=== PATIENT | female | born 1950 | race African-American/Black ===

== ENCOUNTER 2017-10-01 03:23 | Emergency (ER) | payer MEDICARE, MEDICAID ==
[~2017-10-01] VITALS: Ht 170.2 cm; Wt 103.4 kg
[2017-10-01] MEDS ORDERED: CLONIDINE0.1 PO (03:40)
[2017-10-01] MEDS ORDERED: OMEPRAZOLE5 GM PO (03:41)
[2017-10-01] MEDS ORDERED: HYDROCHLOROTHIA25 M2 PO (03:41)
[2017-10-01] MEDS ORDERED: NAPROSYN500 MG PO (03:42)
[2017-10-01] MEDS ORDERED: HYDROCODON-ACE1 EAC7 PO (03:43)
[2017-10-01 04:50] LABS: URINE BILIRUBIN NEGATIVE (Negative); URINE BLOOD 2+ (Negative); URINE CLARITY CLEAR; URINE COLOR YELLOW; URINE GLUCOSE-RANDOM 1+ (Negative); URINE KETONES NEGATIVE (Negative); URINE LEUKOCYTES-REFLEX NEGATIVE (Negative); URINE NITRITE-REFLEX NEGATIVE (Negative); URINE PROTEIN 1+ (Negative); URINE UROBILINOGEN 0.2 E.U./dl (0.2-1.0)
[2017-10-01 05:04] LABS: HEMATOCRIT 49.3 % (37.0-47.0); HEMOGLOBIN 16.3 gm/dL (12.0-15.0); MCH 28.9 pg (26.0-34.0); MCHC 33.1 g/dL (28.0-37.0); MCV 87.5 fL (80.0-100.0); NUCLEATED RBCS 0 /100WBC; PLATELET COUNT* 323 thou/uL (150-400); RBC 5.64 mil/uL (4.20-5.00); WBC 23.2 thou/uL (4.0-11.0)
[2017-10-01 05:08] LABS: CALCIUM 9.5 mg/dL (8.5-10.1); POTASSIUM 3.2 mmol/L (3.5-5.1)
[2017-10-01 05:13] LABS: ALBUMIN 3.5 g/dL (3.4-5.0); TOTAL BILIRUBIN 0.3 mg/dL (<0.1-1.0); TOTAL PROTEIN 7.8 g/dL (6.4-8.2)
[2017-10-01 06:07] LABS: ABSOLUTE LYMPHOCYTES 4.4 thou/uL (0.8-5.3); ABSOLUTE MONOCYTES 0.2 thou/uL (0.0-1.2); ABSOLUTE NEUTROPHILS 18.6 thou/uL (1.6-8.1); PLATELET ESTIMATE ADEQUATE
[2017-10-01 06:08] LABS: LARGE PLATELETS RARE
[2017-10-01 06:13] LABS: SQUAMOUS 4-10 Moderate /LPF (0-3)
[2017-10-01 06:14] LABS: BACTERIA-REFLEX 1-9 Few /HPF (None Seen); CASTS None Seen /LPF (None Seen); CRYSTALS None Seen /LPF (None Seen); URINE WBC-REFLEX 0-5 Rare /HPF (0-5)
[2017-10-01] MEDS ORDERED: REGLAN 10 MG TA10 MG PO (06:43)
[2017-10-01 07:11] VITALS: BP 150/88
== END 2017-10-01 07:11 | disposition home or self-care (01) ==
LOC: M.ERS 03:23
PROVIDERS: Emergency Medicine
DX: R51 Headache (principal); I10 Essential (primary) hypertension; M19.90 Unspecified osteoarthritis, unspecified site; Z96.653 Presence of artificial knee joint, bilateral; Z90.710 Acquired absence of both cervix and uterus; Z88.5 Allergy status to narcotic agent

== ENCOUNTER 2018-02-11 10:51 | Emergency (ER) | payer MEDICARE, MEDICAID ==
[~2018-02-11] VITALS: Ht 167.6 cm; Wt 104.5 kg
[~2018-02-11 10:51] MED LIST: CLONIDINE0.1 PO; HYDROCHLOROTHIA25 M2 PO; HYDROCODON-ACE1 EAC7 PO; NAPROSYN500 MG PO; OMEPRAZOLE5 GM PO; REGLAN 10 MG TA10 MG PO
[2018-02-11] MEDS ORDERED: LIPITOR10 MG PO (11:10)
[2018-02-11] MEDS ORDERED: PREDNISONE 20 M20 M1 PO (11:15)
[2018-02-11] MEDS ORDERED: AMOXICILLIN 50500 MG PO (11:15)
[2018-02-11 11:24] VITALS: BP 130/75
--- NOTE | 2018-02-12 12:58 | EKG ---
[place] [address] ELECTROCARDIOGRAM REPORT Name: JENNYFER LEE [id number] Admission: 02/11/18 Attend Phys: Discharge: 02/11/18 Date of : 52 Report #: [id number] THIS REPORT FOR: //name// [facility] ED Test Date: 2018-02-11 Test Time: 11:10:13 Pat Name: JENNYFER LEE Department: Room: Gender: F Associate Research Scientist: : 1950 Requested By: Mendoza Colvin Order Number: [id number] MD: Tavo Vila Measurements Intervals [place] Rate: 65 P: -38 [place]: 155 QRS: -12 QRSD: 100 T: 16 QT: 392 QTc: 408 Interpretive Statements Sinus rhythm No previous ECG available for comparison Electronically Signed On 02-12-2018 12:58:09 SOIL ANALYST by Tavo Vila [email or web address] <ELECTRONICALLY SIGNED> By: Tavo Vila MD, [facility] 02/12/18 1258 1110 1110 Tavo Vila MD, FACC /EPI
== END 2018-02-11 11:25 | disposition home or self-care (01) ==
LOC: M.ERS 10:51
DX: J06.9 Acute upper respiratory infection, unspecified (principal); I10 Essential (primary) hypertension; M19.90 Unspecified osteoarthritis, unspecified site; Z90.710 Acquired absence of both cervix and uterus; Z88.5 Allergy status to narcotic agent

== ENCOUNTER → 2018-04-04 | Emergency (ER) | payer MEDICARE, MEDICAID ==
[~2018-04-04] VITALS: Ht 170.2 cm; Wt 102.1 kg
[~2018-04-04] MED LIST changes: +AMOXICILLIN 50500 MG PO; +FLEXERIL PO; +LIPITOR10 MG PO; +NORCO 5-325 TA1 EACH PO; +PREDNISONE 20 M20 M1 PO
[2018-04-04 14:04] LABS: ABSOLUTE BASOPHILS 0.2 thou/uL (0.0-0.2); ABSOLUTE EOSINOPHILS 0.3 thou/uL (0.0-0.7); ABSOLUTE LYMPHOCYTES 4.1 thou/uL (0.8-5.3); ABSOLUTE MONOCYTES 0.9 thou/uL (0.0-1.2); ABSOLUTE NEUTROPHILS 7.4 thou/uL (1.6-8.1); BASOPHILS 1.4 %; EOSINOPHILS 2.5 %; HEMATOCRIT 43.7 % (37.0-47.0); HEMOGLOBIN 14.5 gm/dL (12.0-15.0); LYMPHOCYTES 31.6 %; MCH 29.4 pg (26.0-34.0); MCHC 33.2 g/dL (28.0-37.0); MCV 88.7 fL (80.0-100.0); MONOCYTES 7.2 %; MPV 8.6 fl. (7.2-11.1); NUCLEATED RBCS 0 /100WBC; PLATELET COUNT* 308 thou/uL (150-400); POLYS 57.3 %; RBC 4.93 mil/uL (4.20-5.00); RDW-CV 14.4 % (10.5-14.5)
[2018-04-04 14:20] LABS: APTT 30.4 Seconds (25.0-31.3); PROTIME 10.2 Seconds (9.20-11.50)
[2018-04-04 14:24] LABS: ANION GAP 6 mmol/L (7-16); BUN 21 mg/dL (7-18); CHLORIDE 107 mmol/L (98-107); CO2 27 mmol/L (21-32); GLUCOSE 118 mg/dL (70-99); POTASSIUM 3.4 mmol/L (3.5-5.1); SODIUM 140 mmol/L (136-145)
[2018-04-04 14:26] LABS: TROPONIN-I LEVEL <0.06 ng/mL (<0.06)
[2018-04-04 14:37] LABS: ALBUMIN 3.4 g/dL (3.4-5.0); ALKALINE PHOSPHATASE 71 U/L (46-116); CK-MB MASS 0.7 ng/mL (<0.5-3.6); LIPASE 79 U/L (73-393); MAGNESIUM 2.1 mg/dL (1.8-2.4); NT-PRO BRAIN NAT PEPTIDE 253 pg/mL (<300); SGOT 23 U/L (15-37); SGPT 23 U/L (30-65); TOTAL BILIRUBIN 0.6 mg/dL (<0.1-1.0); TOTAL PROTEIN 6.9 g/dL (6.4-8.2)
[2018-04-04 14:55] VITALS: BP 115/73
--- NOTE | 2018-04-05 15:52 | EKG ---
[place] [address] ELECTROCARDIOGRAM REPORT Name: JENNYFER LEE Room: [facility]#: [id number] Admission: 04/04/18 Attend Phys: Discharge: Date of : 52 Report #: [id number] THIS REPORT FOR: //name// [facility] ED Test Date: 2018-04-04 Test Time: 13:44:49 Pat Name: JENNYFER LEE Department: Room: Gender: F Training And Development Rep: MICHI : 1950 Requested By: Mendoza Colvin Order Number: [id number] MD: Dima Serrano Measurements Intervals [place] Rate: 72 P: -37 [place]: 153 QRS: -13 QRSD: 95 T: 31 QT: 389 QTc: 426 Interpretive Statements Sinus rhythm Compared to ECG 02/11/2018 11:10:13 No significant changes Electronically Signed On 04-05-2018 15:51:50 SUPERVISOR EDUCATION by Dima Serrano [email or web address] <ELECTRONICALLY SIGNED> By: Dima Serrano MD, [facility] 04/05/18 1551 1344 1344 Dima Serrano MD, FACC /EPI
== END ==
LOC: M.ERS 13:35
PROVIDERS: Family Medicine
DX: R07.89 Other chest pain (principal); M54.5 Low back pain; I10 Essential (primary) hypertension; M19.90 Unspecified osteoarthritis, unspecified site; Z90.710 Acquired absence of both cervix and uterus; Z96.653 Presence of artificial knee joint, bilateral; Z88.5 Allergy status to narcotic agent; Z98.890 Other specified postprocedural states

== ENCOUNTER → 2018-12-20 | Outpatient (CLI) | payer MEDICARE, MEDICAID | LOC: M.LAB 03:56 | DX: R05 Cough (principal) ==

== ENCOUNTER → 2019-03-26 | Outpatient (CLI) | payer MEDICARE, MEDICAID | LOC: M.RAD 11:34 | DX: M19.011 Primary osteoarthritis, right shoulder (principal) ==

== ENCOUNTER 2019-05-06 15:17 | Emergency (ER) | payer MEDICARE, MEDICAID ==
[~2019-05-06] VITALS: Ht 170.2 cm; Wt 99.8 kg
[2019-05-06 15:33] LABS: URINE BLOOD 1+ (Negative); URINE CLARITY CLEAR; URINE COLOR YELLOW; URINE GLUCOSE-RANDOM NEGATIVE (Negative); URINE KETONES NEGATIVE (Negative); URINE LEUKOCYTES-REFLEX NEGATIVE (Negative); URINE NITRITE-REFLEX NEGATIVE (Negative); URINE PROTEIN TRACE (Negative); URINE SPECIFIC GRAVITY >= 1.030 (1.005-1.030); URINE UROBILINOGEN 0.2 E.U./dl (0.2-1.0)
[2019-05-06 15:34] LABS: ICTOTEST (BILI CONFIRMATORY) Negative (Negative); URINE BILIRUBIN 1+ (Negative)
[2019-05-06] MEDS ORDERED: FLEXERIL PO (15:34)
[2019-05-06 15:44] LABS: SQUAMOUS >10 Many /LPF (0-3)
[2019-05-06 15:45] LABS: BACTERIA-REFLEX >30 Many /HPF (None Seen); CASTS None Seen /LPF (None Seen); CRYSTALS None Seen /LPF (None Seen); MUCUS >6 Heavy strn/LPF (None Seen); URINE RBC 0-2 Rare /HPF (0-2); URINE WBC-REFLEX 0-5 Rare /HPF (0-5)
[2019-05-06 15:52] LABS: ABSOLUTE EOSINOPHILS 0.5 thou/uL (0.0-0.7); ABSOLUTE LYMPHOCYTES 4.4 thou/uL (0.8-5.3); ABSOLUTE MONOCYTES 1.2 thou/uL (0.0-1.2); ABSOLUTE NEUTROPHILS 6.8 thou/uL (1.6-8.1); BASOPHILS 0.2 %; EOSINOPHILS 3.5 %; HEMATOCRIT 42.6 % (37.0-47.0); HEMOGLOBIN 14.4 gm/dL (12.0-15.0); LYMPHOCYTES 34.1 %; MCH 29.3 pg (26.0-34.0); MCHC 33.8 g/dL (28.0-37.0); MCV 86.5 fL (80.0-100.0); MPV 8.7 fl. (7.2-11.1); NUCLEATED RBCS 0 /100WBC; PLATELET COUNT* 299 thou/uL (150-400); POLYS 53.2 %; RBC 4.93 mil/uL (4.20-5.00); RDW-CV 14.3 % (10.5-14.5); WBC 12.9 thou/uL (4.0-11.0)
[2019-05-06 16:01] LABS: CALCIUM 8.6 mg/dL (8.5-10.1); CREATININE 1.1 mg/dL (0.6-1.3)
[2019-05-06 16:05] LABS: ALBUMIN 3.7 g/dL (3.4-5.0); TOTAL BILIRUBIN 0.7 mg/dL (<0.1-1.0)
[2019-05-06 16:07] LABS: POTASSIUM 2.9 mmol/L (3.5-5.1)
[2019-05-06] MEDS ORDERED: POTASSIUM20 PO (18:33)
[2019-05-06] MEDS ORDERED: PYRIDIUM100 M1 PO (18:33)
[2019-05-06] MEDS ORDERED: ONDANSETRON HCL4 M2 PO (18:33)
[2019-05-06] MEDS ORDERED: KEFLEX500 M1 PO (18:33)
[2019-05-06 19:07] VITALS: BP 128/75
== END 2019-05-06 19:08 | disposition home or self-care (01) ==
LOC: M.ERS 15:17
PROVIDERS: Nurse Practitioner Family
DX: N39.0 Urinary tract infection, site not specified (principal); M25.572 Pain in left ankle and joints of left foot; N28.1 Cyst of kidney, acquired; N89.8 Other specified noninflammatory disorders of vagina; E87.6 Hypokalemia; R11.0 Nausea; I10 Essential (primary) hypertension; Z90.710 Acquired absence of both cervix and uterus; M19.90 Unspecified osteoarthritis, unspecified site; Z90.81 Acquired absence of spleen; Z88.5 Allergy status to narcotic agent; Z96.653 Presence of artificial knee joint, bilateral

== ENCOUNTER → 2019-07-05 | Outpatient (CLI) | payer MEDICARE, MEDICAID ==
[~2019-07-05] MED LIST changes: +KEFLEX500 M1 PO; +ONDANSETRON HCL4 M2 PO; +POTASSIUM20 PO; +PYRIDIUM100 M1 PO
[2019-07-05 15:36] LABS: URINE BILIRUBIN NEGATIVE (Negative); URINE BLOOD TRACE (Negative); URINE CLARITY CLEAR; URINE COLOR YELLOW; URINE GLUCOSE-RANDOM NEGATIVE (Negative); URINE KETONES NEGATIVE (Negative); URINE LEUKOCYTES NEGATIVE (Negative); URINE NITRITE NEGATIVE (Negative); URINE PROTEIN NEGATIVE (Negative); URINE SPECIFIC GRAVITY >= 1.030 (1.005-1.030); URINE UROBILINOGEN 0.2 E.U./dl (0.2-1.0)
[2019-07-05 15:39] LABS: HEMATOCRIT 43.4 % (37.0-47.0); HEMOGLOBIN 14.7 gm/dL (12.0-15.0)
[2019-07-05 16:10] LABS: POTASSIUM 2.7 mmol/L (3.5-5.1)
== END ==
LOC: M.LAB 15:08
PROVIDERS: Internal Medicine Nephrology
DX: N18.2 Chronic kidney disease, stage 2 (mild) (principal)

== ENCOUNTER 2020-09-04 10:48 | Emergency (ER) | payer OTHER, MEDICAID ==
[~2020-09-04] VITALS: Ht 170.2 cm; Wt 106.6 kg
[2020-09-04 11:14] LABS: URINE BILIRUBIN NEGATIVE (Negative); URINE BLOOD TRACE (Negative); URINE CLARITY CLEAR; URINE COLOR YELLOW; URINE GLUCOSE-RANDOM NEGATIVE (Negative); URINE KETONES NEGATIVE (Negative); URINE LEUKOCYTES-REFLEX NEGATIVE (Negative); URINE NITRITE-REFLEX NEGATIVE (Negative); URINE PROTEIN NEGATIVE (Negative); URINE UROBILINOGEN 0.2 E.U./dl (0.2-1.0)
[2020-09-04 11:39] LABS: ABSOLUTE BASOPHILS 0.1 thou/uL (0.0-0.2); ABSOLUTE EOSINOPHILS 0.4 thou/uL (0.0-0.7); ABSOLUTE LYMPHOCYTES 3.8 thou/uL (0.8-5.3); ABSOLUTE MONOCYTES 0.8 thou/uL (0.0-1.2); ABSOLUTE NEUTROPHILS 4.3 thou/uL (1.6-8.1); BASOPHILS 1.4 %; EOSINOPHILS 3.8 %; HEMATOCRIT 41.6 % (37.0-47.0); HEMOGLOBIN 14.3 gm/dL (12.0-15.0); LYMPHOCYTES 40.2 %; MCH 29.7 pg (26.0-34.0); MCHC 34.5 g/dL (28.0-37.0); MCV 86.2 fL (80.0-100.0); MONOCYTES 8.1 %; MPV 8.6 fl. (7.2-11.1); NUCLEATED RBCS 0 /100WBC; PLATELET COUNT* 285 thou/uL (150-400); POLYS 46.5 %; RBC 4.82 mil/uL (4.20-5.00); RDW-CV 14.5 % (10.5-14.5); WBC 9.4 thou/uL (4.0-11.0)
[2020-09-04 11:45] LABS: CALCIUM 8.5 mg/dL (8.5-10.1); CREATININE 0.8 mg/dL (0.6-1.3); POTASSIUM 3.3 mmol/L (3.5-5.1)
[2020-09-04 11:52] LABS: ALBUMIN 3.3 g/dL (3.4-5.0); TOTAL BILIRUBIN 0.6 mg/dL (<0.1-1.0); TOTAL PROTEIN 6.8 g/dL (6.4-8.2)
[2020-09-04] MEDS ORDERED: TRAMADOL 50 MG50 MG PO (13:16)
[2020-09-04 13:44] VITALS: BP 124/72
== END 2020-09-04 13:45 | disposition home or self-care (01) ==
LOC: M.ERS 10:48
PROVIDERS: Physician Assistant
DX: R10.33 Periumbilical pain (principal); I10 Essential (primary) hypertension; M19.90 Unspecified osteoarthritis, unspecified site; Z96.653 Presence of artificial knee joint, bilateral; Z88.5 Allergy status to narcotic agent; Z90.710 Acquired absence of both cervix and uterus